=== PATIENT | female | born 1990 | race Caucasian/White ===

== ENCOUNTER 2025-03-12 15:41 | Emergency (ER) | payer SELFPAY ==
[2025-03-12 15:44] VITALS: BP 111/74; PULSE 69; TEMP 36.6; O2SAT 98; BMI 33.3
--- NOTE | 2025-03-12 16:00 | ED.GENADUL1 ---
HPI HPI - General Adult General Chief complaint: Extremity Injury, Upper Stated complaint: UPPER EXTREMITY INJURY Time Seen by Provider: 03/12/25 15:52 Source: patient Mode of arrival: walk-in Limitations: no limitations History of Present Illness HPI narrative: 34-year-old female presents to the emergency department for right wrist pain. She fell on her hand causing this injury to the wrist a few hours ago. She is right-handed. Hurts more if she moves it. No other injury was sustained, she did not hit her head. Related Data Home Medications ?Medication ?Instructions ?Recorded ?Confirmed No Known Home Medications 03/12/25 03/12/25 Allergies Allergy/AdvReac Type Severity Reaction Status Date / Time No Known Drug Allergies Allergy Verified 03/12/25 15:44 Opioid HPI Opioid Management Most Recent Opioid Data: Last Pain Scale 9 Today, 15:49 Review of Systems ROS Narrative A ten point review of systems is negative except as noted above. PFSH PFSH Social History Little interest or pleasure in doing things: not at all Feeling down, depressed, or hopeless: not at all Exam Narrative Exam Narrative: Nurses note and vital signs reviewed and patient is not hypoxic. General: The patient appears well and in no apparent distress. Patient is resting comfortably on cart. Skin: Warm, dry, no pallor noted. There is no rash noted. Head: Normocephalic, atraumatic Eye: Normal conjunctiva, no drainage Ears, Nose, Mouth, and Throat: oral mucosa is moist. Nares patent. Cardiovascular: Regular Rate and Rhythm Respiratory: Patient is in no distress, no accessory muscle use Back: non-tender GI: Nontender Musculoskeletal: No obvious deformity in the right wrist. She has some tenderness and discomfort with range of motion. Fingers and hand are nontender and have full range of motion. Right elbow nontender and has full range of motion. Neurological: Awake and alert Psychiatric: Cooperative Constitutional Vital Signs, click to edit/add: Last Vital Signs Temp 97.9 F 03/12/25 15:44 Pulse 69 03/12/25 15:44 Resp 18 03/12/25 15:44 BP 111/74 03/12/25 15:44 Pulse Ox 98 03/12/25 15:44 O2 Del Method Room Air 03/12/25 15:44 Course Vital Signs Vital signs: Vital Signs Temperature 97.9 F 03/12/25 15:44 Pulse Rate 69 03/12/25 15:44 Respiratory Rate 18 03/12/25 15:44 Blood Pressure 111/74 03/12/25 15:44 Pulse Oximetry 98 03/12/25 15:44 Oxygen Delivery Method Room Air 03/12/25 15:44 Temperature 97.9 F 03/12/25 15:44 Pulse Rate 69 03/12/25 15:44 Respiratory Rate 18 03/12/25 15:44 Blood Pressure 111/74 03/12/25 15:44 Pulse Oximetry 98 03/12/25 15:44 Oxygen Delivery Method Room Air 03/12/25 15:44 Medical Decision Making MDM Narrative Medical decision making narrative: X-rays negative per radiologist. Splint applied, application checked by me and found to be appropriate, she is neurovascularly intact. Treatment diagnosis and follow-up were discussed with the patient. Differential Diagnosis Differential Diagnosis: Wrist sprain, wrist fracture Imaging Data Right wrist x-ray: Radiologist's impression: No acute fracture or dislocation Discharge Plan Discharge Chief Complaint: Extremity Injury, Upper Clinical Impression: Right wrist sprain Patient Disposition: Home, Self-Care Time of Disposition Decision: 17:00 Condition: Good Mode of Transportation: Private Vehicle Prescriptions / Home Meds: No Action No Known Home Medications Print Language: Cook Islander Instructions: Wrist Sprain (ED) Referrals: Physician,Non-Staff, MD [Primary Care Provider] - 1 week
== END 2025-03-12 17:25 | disposition home or self-care (01) ==
PROVIDERS: Emergency Provider Emergency Medicine
DX: S63.501A Unspecified sprain of right wrist, initial encounter (principal); W19.XXXA Unspecified fall, initial encounter
CPT/HCPCS: 73110; 99283

== ENCOUNTER 2025-06-18 19:54 | Emergency (ER) | payer SELFPAY ==
[2025-06-18 20:08] VITALS: BP 111/73; PULSE 81; TEMP 36.9; O2SAT 97; BMI 33.5
[2025-06-18 20:24] LABS: Glucose Urine UA NEGATIVE (NEGATIVE)
[2025-06-18 20:26] LABS: HCG Qualitative Urine* POSITIVE (NEGATIVE)
[2025-06-18 20:31] LABS: Cast Seen? NONE SEEN #/LPF (NONE SEEN); Crystals Seen? None Seen #/HPF (None Seen)
[2025-06-18 20:32] LABS: Urine Culture Indicated NO
[2025-06-18 20:53] LABS: Hematocrit 41.0 % (36.0-48.0); Hemoglobin 13.7 g/dL (12.0-16.0); Immature Granulocytes Abs Auto 0.08 10^3/uL (0.00-0.03); Immature Granulocytes Pct Auto 0.5 % (0.0-0.5); Lymphocytes Absolute Auto 4.4 10^3/uL (1.2-3.8); Mean Corpuscular HGB Conc 33.4 g/dL (29.9-35.2); Mean Corpuscular Hemoglobin 31.7 pg (26.7-34.0); Mean Corpuscular Volume 94.9 fL (81.0-99.0); Platelet Count 306 10^3/uL (150-450); Red Blood Count 4.32 10^6/uL (4.20-5.40); White Blood Count 17.5 10^3/uL (4.0-11.0)
[2025-06-18 21:06] LABS: Alanine Aminotransferase 21 U/L (14-59); Albumin Globulin Ratio 0.9; Albumin Level 3.2 g/dL (3.4-5.0); Alkaline Phosphatase 74 U/L (46-116); Anion Gap 5.8; Aspartate Amino Transferase 8 U/L (15-37); Blood Urea Nitrogen 13.0 mg/dL (7.0-18.0); Calcium 8.8 mg/dL (8.5-10.1); Carbon Dioxide 26.8 mmol/L (21.0-32.0); Chloride 107 mmol/L (98-107); Estimated GFR (African America >60 (>=60 mL/min/1.73m^2); Estimated GFR (Non-African Ame >60 (>=60 mL/min/1.73m^2); Globulin 3.6 g/dL; Glucose 106 mg/dL (74-106); Potassium 3.6 mmol/L (3.5-5.1); Sodium 136 mmol/L (136-145); Total Protein 6.8 g/dL (6.4-8.2)
--- NOTE | 2025-06-18 21:29 | ED.ABDPAIN1 ---
HPI - Abdominal Pain General Chief Complaint: Abdominal Pain Stated Complaint: CRAMPS/ TOOK PREG TEST FEW DAYS AGO Time Seen by Provider: 06/18/25 20:15 Source: patient Mode of arrival: walk-in Limitations: no limitations History of Present Illness HPI narrative: This 35-year-old female G4, P3 presents for evaluation of right upper quadrant abdominal pain and lower abdominal cramping. The patient states that she does not know exactly when her last menstrual period was but it was proximately 2 months ago. She states she started having some breast tenderness and upper abdominal pain and took a test that was positive. Since then she has developed some pain in her right lower quadrant. She states the pain is cramping in nature. She has not had any vaginal bleeding or discharge. She denies any chest pain or shortness of breath. She does not currently have an DIP PAINTER. Related Data Home Medications ?Medication ?Instructions ?Recorded ?Confirmed No Known Home Medications 03/12/25 06/18/25 Allergies Allergy/AdvReac Type Severity Reaction Status Date / Time No Known Drug Allergies Allergy Verified 06/18/25 20:07 Review of Systems ROS Status of ROS 10 or more systems reviewed and unremarkable except as noted in history and below PFSH PFSH Social History Little interest or pleasure in doing things: not at all Feeling down, depressed, or hopeless: not at all Exam Narrative Exam Narrative: Vital signs and Nursing Notes reviewed: Patient is afebrile with a normal pulse, normal blood pressure, she is not hypoxic with pulse ox of 97% on room air General: Awake, alert, oriented, no acute distress, lying comfortably on the stretcher HEENT: Normocephalic atraumatic, mucous membranes are moist and pink, eyes are clear, normal conjunctiva, vision is grossly intact Chest: Lungs are clear to auscultation with good air entry, there is no wheezing rhonchi or rales appreciated no accessory muscle use, patient is speaking in complete sentences-no chest wall tenderness to palpation CVS: Regular rate and rhythm S1-S2, no murmurs rubs or gallops, pulses are brisk and equal bilaterally ABD: Soft, flat, nondistended, mild tenderness in the right lower quadrant, no rebound guarding or rigidity, negative Rovsing sign, negative heeltap, negative psoas and obturator signs Extremities: Moving all extremities, no lower extremity tenderness or swelling noted, negative Homans' sign, pulses are brisk and equal bilaterally Skin: Normal in appearance without rash,pallor, petechiae or purpura Neuro: No focal deficits Constitutional Vital Signs, click to edit/add: Last Vital Signs Temp 98.5 F 06/18/25 20:08 Pulse 81 06/18/25 20:08 Resp 18 06/18/25 20:08 BP 111/73 06/18/25 20:08 Pulse Ox 97 06/18/25 20:08 O2 Del Method Room Air 06/18/25 20:08 Course Vital Signs Vital signs: Vital Signs Temperature 98.5 F 06/18/25 20:08 Pulse Rate 81 06/18/25 20:08 Respiratory Rate 18 06/18/25 20:08 Blood Pressure 111/73 06/18/25 20:08 Pulse Oximetry 97 06/18/25 20:08 Oxygen Delivery Method Room Air 06/18/25 20:08 Temperature 98.5 F 06/18/25 20:08 Pulse Rate 81 06/18/25 20:08 Respiratory Rate 18 06/18/25 20:08 Blood Pressure 111/73 06/18/25 20:08 Pulse Oximetry 97 06/18/25 20:08 Oxygen Delivery Method Room Air 06/18/25 20:08 MDM - Abdominal Pain MDM Narrative Medical decision making narrative: This 35-year-old female presents for evaluation of lower abdominal cramps and right upper quadrant abdominal pain. The patient states the symptoms started several days ago. She does not keep track of her menstrual periods any longer but had a home test that was positive. She was concerned that the pain which she was having was because her kidneys were not able to drain due to the baby. I explained to her that that is something that happens late in not early in . She is having some breast tenderness but no morning sickness symptoms. She is not having any vaginal bleeding but does have some tenderness in her right lower quadrant. She has a negative Rovsing sign, negative obturator and heeltap sign. She has also had right upper quadrant tenderness also likely not related to her . She denies any chest pain or shortness of breath. She does not have any fever. She is tender in the right adnexal area but not in McBurney's point. Her appetite has been normal although she states she has had early satiety. There is no right upper quadrant or epigastric tenderness. I do not appreciate any hepatosplenomegaly. Her urine test was positive. Beta quantitative hCG is 44,000, she has a normal comprehensive metabolic profile. Her white count is elevated at 17.5 with a normal hemoglobin of 13.7. Due to her pain, elevated beta quantitative hCG consistent with and ultrasound was ordered to rule out ectopic . Her vital signs have been stable in the emergency department. Tylenol was ordered for her but she initially refused it. On reevaluation she is agreeable to a dose of Tylenol. Her ultrasound shows a single live IUP at 8 weeks gestation with a normal heart rate in the 160s. The results of this study were discussed with her. I did offer her a CT scan of the abdomen pelvis to further evaluate the right lower quadrant pain with my concern for appendicitis. She declined to the CT scan stating she will return to the emergency department if she has worsening pain, anorexia, fever or any other concerns. Clinically she does not have appendicitis with ease of movement on the stretcher, no anorexia, negative Rovsing sign, negative heeltap obturator and psoas signs. This was discussed with her and she verbalizes understanding but agrees to return to the emergency department for CT scanning if the symptoms continue or worsen. She will be referred to outpatient further evaluation and treatment of her early . She is otherwise hemodynamically stable for discharge at this time. Lab Data Labs: Lab Results 06/18/25 06/18/25 Range/Units 20:13 20:30 WBC 17.5 H (4.0-11.0) 10^3/uL RBC 4.32 (4.20-5.40) 10^6/uL Hgb 13.7 (12.0-16.0) g/dL Hct 41.0 (36.0-48.0) % MCV 94.9 (81.0-99.0) fL MCH 31.7 (26.7-34.0) pg MCHC 33.4 (29.9-35.2) g/dL RDW 12.7 (11.0-15.0) % Plt Count 306 (150-450) 10^3/uL MPV 8.8 L (9.5-13.5) fL Neut % (Auto) 66.0 (43.0-75.0) % Lymph % (Auto) 25.1 (20.5-60.0) % Am[place] % (Auto) 6.6 (1.7-12.0) % Eos % (Auto) 1.5 (0.9-7.0) % Baso % (Auto) 0.3 (0.2-2.0) % Neut # (Auto) 11.6 H (1.4-6.5) 10^3/uL Lymph # (Auto) 4.4 H (1.2-3.8) 10^3/uL Amador # (Auto) 1.2 H (0.3-0.8) 10^3/uL Eos # (Auto) 0.3 (0.0-0.7) 10^3/uL Baso # (Auto) 0.1 (0.0-0.1) 10^3/uL Abs Immat Gran (auto) 0.08 H (0.00-0.03) 10^3/uL Imm/Tot Granulo (auto) 0.5 (0.0-0.5) % Sodium 136 (136-145) mmol/L Potassium 3.6 (3.5-5.1) mmol/L Chloride 107 (98-107) mmol/L Carbon Dioxide 26.8 (21.0-32.0) mmol/L Anion Gap 5.8 BUN 13.0 (7.0-18.0) mg/dL Creatinine 0.65 (0.55-1.02) mg/dL Est GFR ( Amer) >60 (>=60 mL/min/1.73m^2) Est GFR (Non-Af Amer) >60 (>=60 mL/min/1.73m^2) BUN/Creatinine Ratio 20.0 Glucose 106 (74-106) mg/dL Calcium 8.8 (8.5-10.1) mg/dL Total Bilirubin 0.2 (0.2-1.0) mg/dL AST 8 L (15-37) U/L ALT 21 (14-59) U/L Alkaline Phosphatase 74 (46-116) U/L Total Protein 6.8 (6.4-8.2) g/dL Albumin 3.2 L (3.4-5.0) g/dL Globulin 3.6 g/dL Albumin/Globulin Ratio 0.9 HCG, Quant 15438 mIU/mL Urine Color Lt. yellow (YELLOW) Urine Clarity Clear (CLEAR) Urine pH 6.0 (5.0-9.0) Ur Specific [place] 1.025 (1.005-1.025) Urine Protein Negative (NEG/TRACE) mg/dL Urine Glucose (UA) Negative (NEGATIVE) mg/dL Urine Ketones Trace A (NEGATIVE) mg/dL Urine Occult Blood Negative (NEGATIVE) Urine Nitrite Negative (NEGATIVE) Urine Bilirubin Negative (NEGATIVE) Urine Urobilinogen 1.0 (0.2-1.0) EU/dL Ur Leukocyte Esterase Negative (NEGATIVE) Urine RBC None seen (0-2) #/HPF Urine WBC 0-2 A (NONE SEEN) #/HPF Ur Squamous Epith Cells Few A (NONE/RARE) #/LPF Urine Crystals None seen (None Seen) #/HPF Urine Bacteria None seen (NONE SEEN) #/HPF Urine Casts None seen (NONE SEEN) #/LPF Urine Mucus None seen (NONE SEEN) Ur Culture Indicated? No Urine HCG, Qual Positive A (NEGATIVE) Discharge Plan Discharge Chief Complaint: Abdominal Pain Clinical Impression: Early stage of , Leukocytosis, Abdominal pain, RLQ Patient Disposition: Home, Self-Care Time of Disposition Decision: 22:57 Condition: Good Prescriptions / Home Meds: No Action No Known Home Medications Print Language: Pashto Instructions: Leukocytosis (ED), at 7 to 10 Weeks (ED) Additional Instructions: Return to the emergency department for ongoing or worsening right lower quadrant abdominal pain or for associated fever, anorexia or any concerns. Please follow-up closely with DIP PAINTER. Use vitamins daily Referrals: Jerrod Brandon DO [Physician, DIP PAINTER] - 1 week Physician,Non-Staff, [Primary Care Provider] - 1 week
[2025-06-18] MEDS: ACETAMINOPHEN 325 MG TABLET 650 MG PO (23:16)
--- NOTE | 2025-06-18 23:21 | PC.NURSE ---
i gave this patient verbal and written discharge orders along with 1 Rx and this patient voices yes to understanding these. at time of discharge this patient voices no concerns, needs and this patient shows no signs of distress
== END 2025-06-18 23:18 | disposition home or self-care (01) ==
PROVIDERS: Emergency Provider Emergency Medicine
DX: O26.891 Other specified pregnancy related conditions, first trimester (principal); D72.829 Elevated white blood cell count, unspecified; R10.84 Generalized abdominal pain; R10.31 Right lower quadrant pain
CPT/HCPCS: 36415; 76817; 80053; 81001; 84702; 84703; 85025; 99285